=== PATIENT | female | born 1965 | race Caucasian/White ===

== ENCOUNTER 2021-08-23 07:34 | Outpatient (REF) | payer OTHER, SELFPAY ==
[2021-08-23 07:58] LABS: MANUAL DIFF FLAG NO
[2021-08-23 08:26] LABS: Eosinophils Absolute Auto 0.1 X10*3/uL (0.0-0.4); Eosinophils Percent Auto 2.4 % (0-4); Hematocrit 37.3 % (37.0-47.0); Hemoglobin 12.2 g/dl (12.0-16.0); Imm Gran Abs Auto 0.01 X10*3/uL (0.00-0.03); Imm Gran Pct Auto 0.2 % (0.0-0.4); Lymphocytes Absolute Auto 1.5 X10*3/uL (1.2-4.9); Lymphocytes Percent Auto 37.2 % (20-40); Mean Corpuscular HGB Conc 32.7 g/dl (31.0-35.0); Mean Corpuscular Hemoglobin 28.6 pg (27.0-33.0); Mean Corpuscular Volume 87.6 fL (80.0-98.0); Mean Platelet Volume 10.4 fL (9.4-12.3); Monocytes Absolute Auto 0.3 X10*3/uL (0.1-1.2); Neutrophils Absolute Auto 2.1 x10*3/uL (2.0-8.3); Neutrophils Percent Auto 51.2 % (45-73); Platelet Count 238 X10*3/uL (160-400); Red Blood Count 4.26 X10*6/uL (4.20-5.50); Red Cell Distribution Width 12.8 % (11.0-16.0); White Blood Count 4.1 X10*3/uL (4.8-10.8)
[2021-08-23 08:59] LABS: Alanine Aminotransferase 16 U/L (0-31); Albumin Level 4.3 g/dL (3.5-5.0); Alkaline Phosphatase 70 U/L (39-117); Anion Gap 11 (12-20); Aspartate Amino Transferase 19 U/L (5-31); Bilirubin Total 0.6 mg/dL (0.0-1.0); Blood Urea Nitrogen 11 mg/dL (9-16); Carbon Dioxide 28 mmol/L (22-29); Chloride 105 mmol/L (96-108); Cholesterol 221 mg/dL; Estimated Glomerular Filt Rate > 60; Glucose Fasting 94 mg/dL (60-99); HDL Cholesterol 53 mg/dL; LDL Cholesterol Calculated 158 mg/dl; Potassium 4.2 mmol/L (3.3-5.1); Sodium 140 mmol/L (135-145); Total Protein 7.1 g/dL (6.5-8.0); Triglycerides 52 mg/dL
[2021-08-23 09:22] LABS: Thyroid Stimulating Hormone 1.42 uIU/mL (0.32-4.0); Vitamin D 25-OH Total 32.5 ng/mL (>30)
== END 2021-08-23 07:35 | disposition home or self-care (01) ==
LOC: HO.LAB 07:34
PROVIDERS: PCP Internal Medicine; Visit Provider Internal Medicine
DX: Z00.00 Encounter for general adult medical examination without abnormal findings (principal); E78.00 Pure hypercholesterolemia, unspecified; I10 Essential (primary) hypertension
CPT/HCPCS: 36415; 80053; 80061; 82306; 84443; 85025

== ENCOUNTER 2021-12-13 07:06 | Outpatient (REF) | payer OTHER, SELFPAY ==
[2021-12-13 08:11] LABS: Alanine Aminotransferase 28 U/L (0-31); Albumin Level 4.2 g/dL (3.5-5.0); Alkaline Phosphatase 76 U/L (39-117); Anion Gap 13 (12-20); Aspartate Amino Transferase 26 U/L (5-31); Bilirubin Total 0.5 mg/dL (0.0-1.0); Blood Urea Nitrogen 14 mg/dL (9-16); Calcium 9.3 mg/dL (8.4-10.2); Carbon Dioxide 29 mmol/L (22-29); Chloride 105 mmol/L (96-108); Cholesterol 164 mg/dL; Estimated Glomerular Filt Rate > 60; Glucose Fasting 102 mg/dL (60-99); HDL Cholesterol 58 mg/dL; LDL Cholesterol Calculated 96 mg/dl; Potassium 4.4 mmol/L (3.3-5.1); Sodium 143 mmol/L (135-145); Total Protein 7.1 g/dL (6.5-8.0); Triglycerides 51 mg/dL
== END 2021-12-13 07:07 | disposition home or self-care (01) ==
LOC: HO.LAB 07:06
PROVIDERS: PCP Internal Medicine; Visit Provider Internal Medicine
DX: E78.00 Pure hypercholesterolemia, unspecified (principal)
CPT/HCPCS: 36415; 80053; 80061

== ENCOUNTER 2021-12-22 06:24 | Day surgery (SDC) | payer OTHER, SELFPAY ==
--- NOTE | 2021-12-19 07:59 | HO.ANESPROP2 ---
Documented by User: Nina Kirkland NP 12/19/21 08:00 HPI - Anesthesia Eval Consult details Narrative: 56yo F for Colonoscopy ERBE Jet 2 PMFSH Past Medical History Medical History HTN (hypertension) Surgical History Surgical History Hx of colonoscopy Hx of esophagogastroduodenoscopy Hx of hysterectomy Social History Social History Patient Tobacco Use Status: Never used Tobacco Use of substances other than those prescribed or required for medical reasons: No Advance Directives: No Advance Directives Information Provided: Yes Meds Allergies Allergy/AdvReac Type Severity Reaction Status Date / Time latex Allergy Unknown Itching Verified 12/22/21 06:35 Home Medications Medication Instructions Recorded Confirmed Last Taken Type Cantil 3 1,000 mg PO DAILY 12/19/21 12/19/21 Unknown History propranolol 60 mg capsule,24 1 cap PO DAILY 12/19/21 12/19/21 Unknown History hr,extended release Exam Exam Date and Time: December 19, 2021 [id number] Pertinent Lab Results Pertinent Lab Results: Laboratory Tests 08/23/21 12/13/21 07:58 07:17 WBC 4.1 L Hgb 12.2 Hct 37.3 Plt Count 238 Sodium 143 Potassium 4.4 Chloride 105 Carbon Dioxide 29 BUN 14 Creatinine 0.72 Assessment and Plan Assessment Anesthesia Assessment: Chart Reviewed Documented by User: Marsha Cuevas MD 12/22/21 07:24 PMFSH Past Medical History Medical History HTN (hypertension) Surgical History Surgical History Hx of colonoscopy Hx of esophagogastroduodenoscopy Hx of hysterectomy History of Problems with Anesthesia: No Social History Social History Patient Tobacco Use Status: Never used Tobacco Use of substances other than those prescribed or required for medical reasons: No Advance Directives: No Advance Directives Information Provided: Yes Meds Allergies Allergy/AdvReac Type Severity Reaction Status Date / Time latex Allergy Unknown Itching Verified 12/22/21 06:35 Home Medications Medication Instructions Recorded Confirmed Last Taken Type Cantil 3 1,000 mg PO DAILY 12/19/21 12/19/21 Unknown History propranolol 60 mg capsule,24 1 cap PO DAILY 12/19/21 12/19/21 Unknown History hr,extended release Exam Airway Mallampati Class: I TM Dist: >3cm Neck ROM: Full Loose/Missing/Broken Teeth: No Heart: RRR Lungs: CTA Assessment and Plan Assessment Anesthesia Assessment: Anesthesia Plan Discussed Final Anesthetic Review History of Problems with Anesthesia: No NPO: Yes ASA Class: II Final Preanesthetic Review: Meds/Allgs Chart Reviewed, Consent Obtained/Reviewed and Anes Risks/Benef Reviewed Patient Risk: Low Procedure Risk: Low Anesthetic Plan Anesthetic Plan: MAC: Disposition: Standard PACU
[2021-12-22 06:41] VITALS: BP 133/75; PULSE 71; RESP 16; TEMP 36.8; O2SAT 98; BMI 25.0
[2021-12-22] MEDS: Lactated Ringers 1,000 ML 100 ML IVCONT (07:02)
[2021-12-22 08:20] VITALS: BP 114/54; PULSE 80; RESP 20; TEMP 36.8; O2SAT 100
--- NOTE | 2021-12-22 08:22 | PM.OP ---
Brief Operative Note Date of Service: 12/22/21 Pre-op diagnosis: Screening Post-op diagnosis: other (Diverticulosis) Procedure: Colonoscopy to the cecum and TI Surgeon: Gurdeep Wick Anesthesia: MAC Was an Strategic Planning Director used for this Procedure?: No Estimated blood loss (mL): 0 Pathology: none sent Condition: stable Disposition: PACU
[2021-12-22 08:35] VITALS: BP 134/85; PULSE 66; RESP 16; TEMP 37.1; O2SAT 100
--- NOTE | 2021-12-22 08:49 | OP_ITS ---
SURGEON: Gurdeep Wick MD INDICATIONS: The patient presents for evaluation of personal history of tubular adenoma of the colon and colorectal cancer screening. Full consent has been obtained from her for this, including risks of bleeding and perforation. PREOPERATIVE DIAGNOSIS: POSTOPERATIVE DIAGNOSIS: PROCEDURE PERFORMED: Colonoscopy to cecum and terminal ileum. ESTIMATED BLOOD LOSS: COMPLICATIONS: ANESTHESIA: Monitored anesthesia care. ASSISTANTS: SPECIMENS: PREOPERATIVE DIAGNOSES: Colorectal cancer screening and personal history of tubular adenoma of the colon. POSTOPERATIVE DIAGNOSES: Colorectal cancer screening and personal history of tubular adenoma of the colon, sigmoid diverticulosis, and internal hemorrhoids. DESCRIPTION OF PROCEDURE: The patient was placed in the left lateral decubitus position. The digital rectal exam revealed no abnormalities. The Olympus video pediatric colonoscope was entered into the rectum and advanced easily to the cecum. Once in the cecum, I did identify normal-appearing cecal pouch with appendiceal orifice and a normal-appearing ileocecal valve. The terminal ileum was cannulated and appeared normal. The scope was withdrawn back in the colon. The entire cecum and ileocecal valve appeared normal. The scope was slowly withdrawn assessing all mucosal surfaces carefully. Preparation was excellent. I did not visualize any sign of polyps, colitis, nor angiodysplasia. There was a mild amount of sigmoid diverticulosis. In the rectum, scope was retroflexed visualizing internal hemorrhoids, but no other pathology. The rectal mucosa appeared normal. Scope was straightened and withdrawn from the patient. She tolerated the procedure well and was returned to the recovery area in stable condition. IMPRESSION: 1. Diverticulosis. 2. Internal hemorrhoids. PLAN: Given her previous history, I would recommend a followup coloscopy in 5 years for further screening. She will otherwise see me on a p.r.n. basis. MD YADIRA Whitman/HAL / [phone]
== END 2021-12-22 09:11 | disposition home or self-care (01) ==
PROVIDERS: PCP Internal Medicine; Visit Provider Internal Medicine
PROC: (CPT 45378; principal; 2021-12-22 07:30)
DX: Z12.11 Encounter for screening for malignant neoplasm of colon (principal); Z86.010 Personal history of colon polyps; K57.30 Diverticulosis of large intestine without perforation or abscess without bleeding; K64.8 Other hemorrhoids; I10 Essential (primary) hypertension; Z79.899 Other long term (current) drug therapy; Z91.040 Latex allergy status
CPT/HCPCS: 45378; Q9968

== ENCOUNTER 2022-10-24 07:20 | Outpatient (REF) | payer OTHER, SELFPAY ==
[2022-10-24 08:00] LABS: MANUAL DIFF FLAG NO
[2022-10-24 08:44] LABS: Basophils Percent Auto 0.8 % (0-2); Eosinophils Absolute Auto 0.1 X10*3/uL (0.0-0.4); Eosinophils Percent Auto 1.8 % (0-4); Hematocrit 40.8 % (37.0-47.0); Imm Gran Abs Auto 0.01 X10*3/uL (0.00-0.03); Imm Gran Pct Auto 0.2 % (0.0-0.4); Lymphocytes Absolute Auto 1.6 X10*3/uL (1.2-4.9); Lymphocytes Percent Auto 30.5 % (20-40); Mean Corpuscular HGB Conc 31.9 g/dl (31.0-35.0); Mean Corpuscular Hemoglobin 28.4 pg (27.0-33.0); Mean Corpuscular Volume 89.1 fL (80.0-98.0); Mean Platelet Volume 10.5 fL (9.4-12.3); Monocytes Absolute Auto 0.4 X10*3/uL (0.1-1.2); Monocytes Percent Auto 8.4 % (2-11); Neutrophils Percent Auto 58.3 % (45-73); Platelet Count 206 X10*3/uL (160-400); Red Blood Count 4.58 X10*6/uL (4.20-5.50); White Blood Count 5.1 X10*3/uL (4.8-10.8)
[2022-10-24 09:25] LABS: Alanine Aminotransferase 21 U/L (0-31); Albumin Level 4.2 g/dL (3.5-5.0); Alkaline Phosphatase 74 U/L (39-117); Anion Gap 10 (12-20); Aspartate Amino Transferase 23 U/L (5-31); Bilirubin Total 0.6 mg/dL (0.0-1.0); Blood Urea Nitrogen 13 mg/dL (9-16); Calcium 9.7 mg/dL (8.4-10.2); Carbon Dioxide 30 mmol/L (22-29); Chloride 106 mmol/L (96-108); Cholesterol 154 mg/dL (<200); Estimated Glomerular Filt Rate > 60; Glucose Random 90 mg/dL (60-115); HDL Cholesterol 62 mg/dL (>40); LDL Cholesterol Calculated 85 mg/dL (<100); Potassium 4.3 mmol/L (3.3-5.1); Sodium 142 mmol/L (135-145); Total Protein 7.4 g/dL (6.5-8.0); Triglycerides 39 mg/dL (<150)
== END 2022-10-24 07:21 | disposition home or self-care (01) ==
LOC: HO.LAB 07:20
PROVIDERS: PCP Internal Medicine; Visit Provider Internal Medicine
DX: Z00.00 Encounter for general adult medical examination without abnormal findings (principal); E78.00 Pure hypercholesterolemia, unspecified; I10 Essential (primary) hypertension
CPT/HCPCS: 36415; 80053; 80061; 85025

== ENCOUNTER 2024-03-29 10:07 | Outpatient (AMB) | payer OTHER, SELFPAY ==
--- NOTE | 2024-03-29 10:08 | A.OFFPC_ITS ---
Vital Signs 03/29/24 10:18 Height 5 ft 3.75 in Weight 150 lb BMI 25.9 BP 116/72 Blood Pressure Location Rt brachial Pulse 69 Pulse Source Pulse Oximeter Temp 97.1 F Pulse Oximetry (%) 100 Intake Visit Reasons: physical Intake Note: burning in right knee only at night going for almost two weeks, Allergies latex Allergy (Unknown, Verified 03/29/24 10:44) Itching Medication List - Last Reconciled 03/29/24 by Jolanta Mcintyre PA-C atorvastatin 10 mg PO DAILY coenzyme Q10 100 mg PO DAILY [[place] 3 1,000 mg PO DAILY] propranolol ER 1 cap PO DAILY PFSH Medical History (Updated 03/29/24 @ 10:53 by Jolanta Mcintyre PA-C) Overweight (BMI 25.0-29.9) History of mammogram (~08/25/22) H/O impacted cerumen History of varicella Uterine fibroid Calcifying tendinitis of left shoulder Varicella Right knee pain Blurry vision, bilateral Hemorrhoids Mild hypercholesterolemia HTN (hypertension) Surgical History Hx of hysterectomy Hx of colonoscopy (~12/22/21) Hx of esophagogastroduodenoscopy Social History Patient Tobacco Use Status: Never used Tobacco Physical exam (Primary Care) Vital Signs: Last Vital Signs Temp 97.1 F 03/29/24 10:18 Pulse 69 03/29/24 10:18 BP 116/72 03/29/24 10:18 Pulse Ox 100 03/29/24 10:18 Care Plan Goal for BP management: 130/80 at goal BMI result Body Mass Index 25.9 BMI Assessment/Plan discussion: High BMI High, discussed plan: lifestyle, weight reduction, dietary, physical activity and alcohol moderation Tobacco/Smoking Status: Tobacco use Status Patient Tobacco Use Status Never used Tobacco 03/29/24 10:09 Coding Level of Care Code New Pt Prev Care 40-64y(70006) Diagnoses Mild hypercholesterolemia E78.00 HTN (hypertension) I10 Hemorrhoids K64.9 Blurry vision, bilateral H53.8 Right knee pain M25.561 Calcifying tendinitis of left shoulder M75.32 Uterine fibroid D25.9 Annual physical exam Z00.00 Overweight (BMI 25.0-29.9) E66.3 Assessment & Plan Assessment & Plan (1) Mild hypercholesterolemia: Code(s): E78.00 - Pure hypercholesterolemia, unspecified Category: Medical Plan: Patient to continue atorvastatin 10 mg daily. Condition is chronic and stable continue to monitor. (2) HTN (hypertension): Code(s): I10 - Essential (primary) hypertension Category: Medical Plan: Patient to continue propranolol 60 mg daily. Blood pressure at goal under 130 over 80 today. Condition is chronic and stable continue to monitor. (3) Hemorrhoids: Code(s): K64.9 - Unspecified hemorrhoids Category: Medical Plan: Condition is chronic and stable continue to monitor. (4) Blurry vision, bilateral: Code(s): H53.8 - Other visual disturbances Category: Medical Plan: Condition is chronic and stable continue to monitor. (5) Right knee pain: Code(s): M25.561 - Pain in right knee Category: Medical Plan: Atraumatic right knee pain. Patient has full range of motion. No obvious deformities or joint effusions or obvious ligamentous or tendon injury. Will order outpatient x-ray. Condition is stable will continue to monitor. (6) Calcifying tendinitis of left shoulder: Code(s): M75.32 - Calcific tendinitis of left shoulder Category: Medical Plan: Condition is chronic and stable continue to monitor. (7) Uterine fibroid: Code(s): D25.9 - Leiomyoma of uterus, unspecified Category: Medical Plan: Condition is chronic and stable continue to monitor. (8) Annual physical exam: Code(s): Z00.00 - Encounter for general adult medical examination without abnormal findings Category: Medical (9) Overweight (BMI 25.0-29.9): Code(s): E66.3 - Overweight Category: Medical Plan: Condition is chronic and stable continue to monitor. Plan Plan - Facilitate right knee imaging via x-ray at the available center as an outpatient service. - Advise continuation of current medications: propranolol, atorvastatin, colcutan, and omega-3 supplements. - Schedule a DEXA scan to re-evaluate bone density. - Arrange a follow-up mammogram. - Schedule fasting labs including CBC, CMP, lipid panel, and others for health monitoring. Orders: Orders XR DEXA appendicular skeleton Today M81.0 - Age-related osteoporosis without current pathological fracture Comprehensive [place]. Panel Fast Today Z00.00 - Encounter for general adult medical examination without abnormal findings C Reactive Protein Today Z00.00 - Encounter for general adult medical examination without abnormal findings Magnesium Today Z00.00 - Encounter for general adult medical examination without abnormal findings Vitamin B12 and Folate Today Z00.00 - Encounter for general adult medical exam ination without abnormal findings XR knee RT 4V Today M25.561 - Pain in right knee MM screening mammo BI Today Z12.31 - Encounter for screening mammogram for malignant neoplasm of breast Complete Blood Count Auto Diff Today Z00.00 - Encounter for general adult medical examination without abnormal findings Hemoglobin A1c Today Z00.00 - Encounter for general adult medical examination without abnormal findings Lipid Panel Today Z00.00 - Encounter for general adult medical examination without abnormal findings Liver Panel Today Z00.00 - Encounter for general adult medical examination without abnormal findings Vitamin B1 Today Z00.00 - Encounter for general adult medical examination without abnormal findings Vitamin D 25-OH Total Today Z00.00 - Encounter for general adult medical examination without abnormal findings TSH reflex Free T4 Today Z00.00 - Encounter for general adult medical examination without abnormal findings Patient Instructions: Patient Instructions - Attend x-ray appointment and report results back for further discussion. - Continue current medication regimen as prescribed. - Schedule and attend routine mammography and DEXA scan appointments. - Use peroxide capsules for earwax maintenance to prevent blockage. - Follow up with fasting labs as discussed and return with results for review. - Contact the medical office if experiencing new or worsening symptoms. Scribe Plan - Not visible on output: History of Present Illness The patient is a 58-year-old female presenting for her annual physical examination. In addition she would like to discuss her right knee pain. The right knee pain occurs at night, particularly when sleeping, and has no associated recent injuries, torsion events, or falls. As it is intermittent and mild, the patient has not needed or used any medication. The patient has a history of left shoulder impingement syndrome and calcific tendonitis, which have been managed and are stable. She also reports a history of uterine fibroids followed by a partial hysterectomy. She has received the shingles vaccine after a past chickenpox infection. The patient's chronic conditions include essential hypertension and hyperlipidemia, for which she is currently taking propranolol, atorvastatin, colcutan, and omega-3 supplements. Blood cholesterol levels are noted to be within a favorable range from her last recorded blood work in October 2022. Social History - Receives regular mammograms and colonoscopies. - Self-manages earwax accumulation with urgent care consultations. Review of Systems - Ears: Reports ear clogging twice a year, requiring cleaning. - Musculoskeletal: Denies any new injuries or falls related to right knee pain. - General: Denies additional current complaints beyond those discussed for right knee and standard health review. Physical Exam Appearance: Alert. Oriented X3. No acute distress. Head: Normal external exam. Normocephalic. Atraumatic. Eyes: Pupils are equal, round, and reactive to light. Extraocular movements intact. Conjunctiva and sclera normal. Eyelids normal. Ears: External auditory canal normal. Tympanic membranes normal. Patient reports ears clog up at least twice a year and require cleaning. Throat: Pharynx normal. Uvula midline. Moist mucous membranes. Neck: Normal inspection. Neck supple. Full range of motion. No adenopathy. Thyroid Normal. No meningeal signs. No neck mass noted. Cardiovascular: Normal heart rate and rhythm. Heart sound normal. No murmurs noted. Pulses normal throughout. Blood pressure is 116/70. Respiratory: No respiratory distress. Painless inspiration. Breath sounds normal. No wheezes/rales/rhonchi noted. Chest nontender. No accessory muscle usage noted or decreased air movement noted. Abdomen: Soft and nontender. Bowel sounds normal in all 4 quadrants. No distention noted. No organomegaly noted. No visible injury noted. Back: No costovertebral angle tenderness. Full range of motion noted. Skin: Skin warm and dry. Normal skin color. Normal skin turgor. No rashes/lesions/lacerations noted. Extremities: No lower extremity edema. Extremities exhibit normal range of motion. Extremities nontender. Patient reports right knee pain. Neuro: Oriented X 3. No motor deficit. No sensory deficit. Reflexes normal. Results - Labs: Previous blood work from October 2022 indicates normal cholesterol levels. - Tests: Last colonoscopy was done on December 22, 2021. Last mammogram in 2022 was normal. DEXA scan from October 29, 2017, was normal. Plan - Facilitate right knee imaging via x-ray at the available center as an outpatient service. - Advise continuation of current medications: propranolol, atorvastatin, colcutan, and omega-3 supplements. - Schedule a DEXA scan to re-evaluate bone density. - Arrange a follow-up mammogram. - Schedule fasting labs including CBC, CMP, lipid panel, and others for health monitoring. Patient was informed and verbally consented to the use of an ambient scribe for clinic note documentation during this visit. Discussion Notes I discussed with the patient the plan to obtain an x-ray of her right knee to evaluate any possible internal issues given her symptoms and history. I explained where this can be performed and confirmed the facility's availability during weekends. We reviewed the importance of continued medication management for essential hypertension and hyperlipidemia. I advised annual maintenance imaging studies, including a mammogram and a repeat DEXA scan. We also conversed about ongoing health monitoring through regular lab work. The patient recognizes and consents to the proposed medical approach and understands the follow-up process. Patient Instructions - Attend x-ray appointment and report results back for further discussion. - Continue current medication regimen as prescribed. - Schedule and attend routine mammography and DEXA scan appointments. - Use peroxide capsules for earwax maintenance to prevent blockage. - Follow up with fasting labs as discussed and return with results for review. - Contact the medical office if experiencing new or worsening symptoms.
[2024-03-29 10:18] VITALS: BP 116/72; PULSE 69; TEMP 36.2; O2SAT 100; BMI 25.9
--- OUTSIDE RECORDS SUMMARY | 2024-03-29 10:35 | XMS_ITS ---
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
--- OUTSIDE RECORDS SUMMARY | 2024-03-29 10:35 | XMS_ITS | Data Portability ---
Author Organization [place] [facility] [address] Address [address] [place] [address] Assessment No assessment recorded. Plan of Treatment Reminders Order Date Submit Date Provider Last Modified By Organization Details Last Modified Time Details Appointments None record ed. Lab None record ed. Referral None record ed. Procedures None record ed. Surgeries None record ed. Imaging None record ed. Medication Orders neomyc in-nichelle ymyxin -hydro ramila 3.5 mg-10, 000 unit/m L-1 % ear drops, susp 023 04/06/19 23 [id number], [address] [place], [address], 3 19:24:24 Patient TargetsNo targets recorded. Patient Instructions Encounter Date Encounter Id Patient Instructions Last Modified By Organization Details Last Modified Time 04/06/2022 [id number] Water in the ear , from swimming or bathing, makes the ear canal prone to infection. Hot and humid weather also predisposes to infection. Symptoms of otitis externa include: ear pain, fullness or itching in the ear, ear drainage, and temporary loss of hearing. These symptoms are similar to those caused by otitis media (middle ear infection). To differentiate between external ear infection and middle ear infection, the provider looks in the ear with an instrument called an otoscope. It is important to distinguish between the two infections, as they are treated differently: External otitis is treated with drops in the ear canal, while middle ear infection is sometimes treated with an antibiotic by mouth. MEASURES YOU SHOULD TAKE TO HELP TREAT EXTERNAL EAR INFECTION: 1. Use the ear drops regularly, as directed on the prescription. 2. The rock to treatment is getting the drops down into the canal and keeping the medicine there. To accomplish this: Lie on your side, with the unaffected ear down. Put three to four drops in the infected ear canal, then gently pull the outer ear back and forth several times, working the medicine deeper into the ear canal. Remain still, dhmu-ksw-dnqi-down for about 15 minutes. 3. Keep the ear as dry as possible. Swimming should be postponed until the infection has cleared. Try to avoid getting water in the ear when bathing. If water does get in the ear, the canal can be gently dried with a hair blow dryer. Use the low heat setting, and keep the blow dryer about six inches from the ear. 4. Noqs-gkd-klzpzea pain medications can relieve discomfort associated with external otitis. Acetaminophen (Tylenol), ibuprofen, or naproxen can be taken, depending on individual preference. 5. Return to the [facility] in about one week. The provider can check to make sure the infection has cleared, continue the medicine if needed, okay a return to swimming, etc. 6. To prevent repeated episodes of otitis externa, try to keep the ear canal dry. Gentle swabbing with Q-tips (never deep into the canal), along with a hair blow dryer (low heat), can be used to dry the ear canal if it gets wet. 7. Should you develop severe pain, fever, severe headache, or stiff neck, see your personal/referral doctor or go to the closest emergency department promptly. Otitis externa does not normally cause these symptoms; another problem, requiring different treatment, could be present [email or web address] Not available 04/06/2022 19:22:33 Reason for Referral None Reported. Problems Name Problem SNOMED Code Status Onset Date Resolution Date Notes Provider Name and Address Organization Details Recorded Time Hypertensive disorder 42640470 Active 2022 Kalpana reed, PA - [facility] 3 18:50:57 Hyperlipidemia 00002623 Active 2022 Kalpana reed, PA - [facility] 3 18:51:03 Problem Notes None recorded. Procedures Surgical History Date Name Laterality Status Provider Name and Address Organization Details Recorded Time 3 Cerumen Removal by Irrigation completed Kalpana Valadez PA - [facility] 04/06/2022 19:10:49 Imaging Results None recorded. Procedure Notes None recorded. Medical Equipment None Reported. Allergies No known drug allergies Medications Name Sig Start Date Stop Date Status Note LastModified by Organization Details LastModified Time atorvastatin 10 mg tablet TAKE 1 TABLET BY MOUTH EVERY DAY FOR 90 DAYS active Not Available Not Available No t Available propranolol ER 60 mg capsule,24 hr,extended release TAKE 1 CAPSULE BY MOUTH EVERY DAY FOR 90 DAYS active Not Available Not Available No t Available neomycin-polym yxin-hydrocort 3.5 mg-10,000 unit/mL-1 % ear drops,susp INSTILL 4 DROPS INTO AFFECTED EAR(S) BY OTIC ROUTE 3 TIMES PER DAY 2022 active Not Available Not Available Not Avai lable Vitals Date Recorded Body height Body mass index (BMI) Body weight Oxygen saturation Oxygen saturation in Arterial blood by Pulse oximetry Pain severity - 0-10 verbal numeric rating [Score] - Reported Heart rate Respiratory rate Body temperature Systolic blood pressure Diastolic blood pressure Provider Name and Address Organization Details Last Updated DateTime 165.1 cm 25 kg/m2 59744.8 6 g 99 % 99 % 0 74 /min 20 /min 97.9 [degF] 137 mm[Hg] 84 mm[Hg] Kalpana Valadez [employer] 18:56:04 Social History Question Answer Notes LastModified by Organizat ion Details LastModified Time Tobacco Smoking Status Never Smoker Kalpana reed PA - [facility] 04/06/2022 18:51:13 What Is Your Level Of Alcohol Consumption? Occasional Information not available 04/06/2022 Have You Had Direct Contact, Or Contact During Intimacy, With Monkeypox Rash, Scabs, Or Body Fluids From A Person With Monkeypox? No Information not available 04/06/2022 Do You Use Any Illicit Or Recreational Drugs? No Information not available 04/06/2022 Have You Recently Traveled Abroad? No Information not available 04/06/2022 Do You Or Have You Ever Used Any Other Forms Of Tobacco Or Nicotine? No Information not available 04/06/2022 Sex: Unknown Functional Status None recorded. Mental Status None recorded. Family History Relationship Description Onset Age of this Age Resolved Age Notes LastModified by Organization Details LastModified Time Father No current problems or disability Not available 04/06 18:51:05 Mother No current problems or disability Not available 04/06 18:51:05 Medical History No medical history recorded. Gynecological HistoryNo gynecological history recorded. Obstetrics History GPAL:G 0 P 0 0 0 0 Immunizations Vaccine Type Date Status Note Provider Nam e and Address Organization Details Recorded Time Influenza, split virus, quadrivalent, preservative 0 completed Kalpana [place] null, PA - [facility] 04/06/2022 18:50:33 Influenza, split virus, quadrivalent, preservative 8 completed Kalpana Rory null, PA - [facility] 04/06/2022 18:50:33 zoster recombinant 2 completed Kalpana [place] null, PA - [facility] 04/06/2022 18:50:33 zoster recombinant 2 completed Kalpana [place] null, PA - [facility] 04/06/2022 18:50:33 COVID-19, mRNA, LNP-S, PF, 30 mcg/0.3 mL dose 1 completed Kalpana [place] null, PA - [facility] 04/06/2022 18:50:33 COVID-19, mRNA, LNP-S, PF, 30 mcg/0.3 mL dose 1 completed Kalpana Rory null, PA - [facility] 04/06/2022 18:50:33 COVID-19, mRNA, LNP-S, PF, 30 mcg/0.3 mL dose 1 completed Kalpana [place] null, PA - [facility] 04/06/2022 18:50:33 Past Encounters Encounter ID Performer Location Encounter Start Date Encounter Closed Date Diagnosis/Indication Diagnosis SNOMED-CT Code Diagnosis ICD10 Code Diagnosis Note [id number] [address] [address] [address] 02/25/2021 08:10:25 02/25/2021 10:05:26 [id number] [address] [place] [address] 12/10/2019 18:02:11 12/10/2019 19:01:53 [id number] [address] [place] [address] 06/01/2020 16:47:49 06/01/2020 17:43:59 [id number] [address] [place] [address] 11/27/2019 17:47:43 11/27/2019 18:57:13 [id number] [address] [place] [address] 07/04/2016 18:40:43 07/04/2016 19:14:58 [id number] Mahesh Fleming NP [address] [place] [address] 04/06/2022 17:32:19 04/06/2022 19:25:43 Otitis externa of bilateral ears 4529668071 369437 H60.93 Health Concerns Section Related Observation LastModified by Organization Detai ls LastModified Time None Recorded Concern Status LastModified by Organization Details LastModified Time None Recorded Advance Directives Directive None Recorded Payers Encounter Date Sequence Insurance Name Policy Number Policy Hernandez Covered Member ID Hernandez Member ID Guarantor Name 11/27/2019 1 [employer]AN (PPO) [id number] Jeanna A Faye [id number] Jeanna A Faye 12/10/2019 1 [employer] PLAN (PPO) [id number] Jeanna A Faye [id number] Jeanna A Faye 06/01/2020 1 [employer] PLAN (PPO) [id number] Jeanna A Faye [id number] Jeanna A Faye 02/25/2021 1 [employer] PLAN (PPO) [id number] Jeanna A Faye [id number] Jeanna A Faye 04/06/2022 1 [employer] IN[employer] PLAN (PPO) [id number] Jeanna A Faye [id number] Jeanna A Faye Notes Date Note Type Note Provider Name and Address Organization Details Recorded Time 3 text/html Ear problem UCReported bypatient.source of patient informationInformation obtained from patient; Patient arrived at Urgent Care ambulatory; learning styles: auditory Location:bilateral Quality:clogged;decreased hearing Severity:moderate Duration:4 weeks Context:no sick contacts; no recent swimming/water in ear; no recent air travel Modifying Factors:does not hurt to lie on, or pull on ear; does not hurt to chew; often has wax accumulation Mahesh Fleming NP [address] [place], [address], PA - [facility] 04/06/2022 19:24:58 OBGyn Episode No OBEpisode recorded.
--- OUTSIDE RECORDS SUMMARY | 2024-03-29 10:35 | XMS_ITS | Patient Health Record ---
Author Organization Gurdeep Astorga DO, FAC Address [address] [place], [place] [id number] Care Team Providers Care Marketing Analytics Analyst Name Role Phone Gurdeep Astorga Primary Care Provider ALLERGIES No Known Allergies REASON FOR REFERRAL No Information MEDICATIONS Medication SIG (Take, Route, Frequency, Duration) Notes Start Date End Date Status Propranolol HCl ER 60 MG 1 capsule Orall y Once a day Active Atorvastatin Calcium 10 MG 1 tablet Oral ly Once a day for 90 days Active Paxlovid (300/100) 20 x 150 MG & 10 x 100MG 3 tablets Orally Twice a day for 5 days 01/29/2023 Active [place] 3 1000 MG 1 capsule Orally Onc e a day Active Co Q 10 100 MG 1 capsule Orally Onc e a day Active IMMUNIZATIONS Vaccine Route Administration Date Status Comme nts Td (adult) Unknown 09/30/2004 Administered Influenza IM Intramuscular 11/11/2011 Administered Influenza IM Intramuscular 05/04/2013 Administered Influenza Quad IM Intramuscular 12/14/2014 Administered Influenza Quad IM Intramuscular 02/04/2018 Administered Influenza Quad IM Intramuscular 12/19/2019 Administered COVID-19 Pfizer BioNTech Unknown 01/10/2021 Administere d Shingrix Unknown 08/01/2021 Administered COVID-19 Pfizer BioNTech Unknown 05/16/2020 Administere d COVID-19 Pfizer BioNTech Unknown 04/24/2020 Administere d Shingrix Unknown 10/11/2021 Administered SOCIAL HISTORY Tobacco Use: Social History Observation Description Date Details (start date - stop date) Never Smoker NA - NA Sex Assigned At : Social History Observation Description Sex Assigned At Unknown Tobacco Use/Smoking Question Answer Notes Patient is a nonsmoker Additional Findings: Tobacco Non-User Cu rrent non-smoker, currently using no form of tobacco Alcohol Screen Question Answer Notes Did you have a drink contain ing alcohol in the past year? Yes How often did you have a dri nk containing alcohol in the past year? Monthly or less (1 point) How many drinks did you have on a typical day when you were drinking in the past year? 1 or 2 drinks (0 point) How often did you have 6 or more drinks on one occasion in the past year? Never (0 point) Points 1 Interpretation Negative PROBLEMS Problem Type ICD Code Onset Dates Problem Status W/U Status Risk SNOMED Code Notes Problem Essential hypertensi on (I10) Active confirmed 86621932 Problem Bilateral impacted cerumen (H61.23) Active confirmed 77642511 Problem Hypercholesterolemia (E78.00) Active confirmed 66389473 Problem Blurred vision, bilateral (H53.8) Active confirmed 979181620 Encounters Encounter Location Date Provider Diagnosis Gurdeep Astorga DO, [facility] [address] [place], [place] [id number] 09/29/2023 Gurdeep Astorga DO, [facility] [address], [place] [id number] 02/01/2024 Gurdeep Astorga DO, [facility] [address], [place] [id number] 03/29/2024 Gurdeep Astorga PLAN OF TREATMENT No Information Insurance Providers Payer Name Payer Address Payer Phone Subscriber Number Group Number Insured Name Patient Relationship to Insured Coverage Start Date Coverage End Date [facility] [address] [place] [phone] [id number] Faye, Jeanna Self - patient is the insured MEDICAL (GENERAL) HISTORY Medical History History ICD Code uterine fibroids hemorrhoids dermatitis, contact, to surgical gloves and masks varicella tendonitis, calcific, left shoulder cerumen impaction Hypercholesterolemia E78.00 Essential hypertension I10 Blurred vision, bilateral H53.8 Surgical History Surgery Date(Month/Year) hysterectomy, abdominal 11/2011
--- OUTSIDE RECORDS SUMMARY | 2024-03-29 10:35 | XMS_ITS ---
Author Organization Gurdeep Astorga DO, FACBrigido Address [address] [place], [place] [phone] Care Team Providers Care Email Campaign Manager Name Role Phone Gurdeep Astorga Primary Care Provider Encounters Encounter Location Date Provider Diagnosis Gurdeep Astorga DO, FACP [address] [place] [id number] 03/29/2024 Gurdeep Astorga PLAN OF TREATMENT No Information
--- OUTSIDE RECORDS SUMMARY | 2024-03-29 10:35 | XMS_ITS | Patient Health Record ---
Author Organization [facility] Address [address] [place] [address] Care Team Providers Care Corporate Quality Assurance Manager Name Role Phone Rizwan (RETIRED) Delilah NEVAREZ Primary Care Provid er Unavailable Delilah Wick Unavailable [phone] ALLERGIES No Known Allergies REASON FOR REFERRAL No Information MEDICATIONS Medication SIG (Take, Route, Frequency, Duration) Notes Start Date End Date Status [place] 3 1000 MG 1 capsule Orally Onc e a day for 30 day(s) Active Hair/Skin/Nails Vitamin Acti ve Propranolol HCl ER 60 MG Oral for 90 Active IMMUNIZATIONS Vaccine Route Administration Date Status Comme nts Influenza Unknown 09/10/2021 Refused SOCIAL HISTORY Sex Assigned At : Social History Observation Description Sex Assigned At Unknown PROBLEMS Problem Type ICD Code Onset Dates Problem Status W/U Status Risk SNOMED Code Notes Problem Encounter for screening for malignant neoplasm of colon (Z12.11) Active confirmed 674762367 Problem Encounter for screening for malignant neoplasm of rectum (Z12.12) Active confirmed Screening for malignant neoplasm of rectum (005469167) Problem Preprocedural examination (Z01.818) Active confirmed 27027913 Problem History of adenomatous polyp of colon (Z86.010) Active confirmed History o f adenomatous polyp of colon (267656293) Problem Personal history of colonic polyps (Z86.010) Active confirmed History of polyp of colon (situation) (499727853) Problem Colon, diverticulosis (K57.30) Active confirmed Diverticular disease of colon (609555075) PLAN OF TREATMENT Pending Test Test Name Order Date GI BIOPSY 06/17/2015 Future Test Test Name Order Date COLONOSCOPY 03/27/2015 COLONOSCOPY 09/10/2021 Insurance Providers Payer Name Payer Address Payer Phone Subscriber Number Group Number Insured Name Patient Relationship to Insured Coverage Start Date Coverage End Date [facility] [employer] [address] [place] [address] [id number] CHIOMA MALONE Self - patient is the insured MEDICAL (GENERAL) HISTORY Medical History History ICD Code EGD with removal of foreign body 08-24-19 09--chicken bone Denies SC,DM,CVA,Lung disease,renal dise ase Colonoscopy 06/2015 with a small tubular adenoma removed HTN Surgical History Surgery Date(Month/Year) Hysterectomy
--- OUTSIDE RECORDS SUMMARY | 2024-03-29 10:36 | XMS_ITS ---
Author Organization Gurdeep Astorga DO, FACP Address [address] [place], [place] [phone] Care Team Providers Care Fishing Boat Mate Name Role Phone Gurdeep Astorga Primary Care Provider REASON FOR VISIT physical Encounters Encounter Location Date Provider Diagnosis Gurdeep Astorga DO, FACP [address] [place], [place] [phone] 02/01/2024 Gurdeep Astorga PLAN OF TREATMENT No Information
== END 2024-03-29 10:45 | disposition home or self-care (01) ==
LOC: HO.HMCSH 10:07
PROVIDERS: PCP Internal Medicine; Visit Provider Physician Assistant Medical
DX: E78.00 Pure hypercholesterolemia, unspecified (principal); I10 Essential (primary) hypertension; K64.9 Unspecified hemorrhoids; H53.8 Other visual disturbances; M25.561 Pain in right knee; M75.32 Calcific tendinitis of left shoulder; D25.9 Leiomyoma of uterus, unspecified; Z00.00 Encounter for general adult medical examination without abnormal findings; E66.3 Overweight

== ENCOUNTER 2024-04-15 07:19 | Outpatient (REF) | payer OTHER, SELFPAY ==
--- NOTE | ~2024-04-15 | XR_ITS ---
EXAMINATION: XR KNEE 4 OR MORE VIEWS RIGHT HISTORY: M25.561 - Pain in right knee COMPARISON: There are no prior studies available for comparison. FINDINGS: Four views of the right knee are submitted. A small sclerotic focus in the medial tibial plateau may represent enchondroma or bone infarct. There is a small exostosis off the medial tibial metaphysis. There is no fracture or dislocation. The joint spaces are preserved. The soft tissues are unremarkable. There is no joint effusion. XR/XR knee RT 4V IMPRESSION: Small enchondroma versus bone infarct in the medial tibial plateau. Small exostosis off the medial tibial metaphysis. Electronically signed by: Gurdeep Andrea MD 04/18/2024 06:59 AM EDT
[2024-04-15 07:58] LABS: MANUAL DIFF FLAG NO
[2024-04-15 08:30] LABS: Basophils Percent Auto 0.9 % (0-2); Eosinophils Absolute Auto 0.1 X10*3/uL (0.0-0.4); Eosinophils Percent Auto 2.4 % (0-4); Hematocrit 37.8 % (37.0-47.0); Hemoglobin 12.2 g/dl (12.0-16.0); Imm Gran Abs Auto 0.01 X10*3/uL (0.00-0.03); Imm Gran Pct Auto 0.2 % (0.0-0.4); Lymphocytes Absolute Auto 1.4 X10*3/uL (1.2-4.9); Lymphocytes Percent Auto 33.3 % (20-40); Mean Corpuscular HGB Conc 32.3 g/dl (31.0-35.0); Mean Corpuscular Hemoglobin 28.6 pg (27.0-33.0); Mean Corpuscular Volume 88.7 fL (80.0-98.0); Mean Platelet Volume 10.1 fL (9.4-12.3); Monocytes Absolute Auto 0.3 X10*3/uL (0.1-1.2); Monocytes Percent Auto 7.1 % (2-11); Neutrophils Absolute Auto 2.4 x10*3/uL (2.0-8.3); Neutrophils Percent Auto 56.1 % (45-73); Platelet Count 203 X10*3/uL (160-400); Red Blood Count 4.26 X10*6/uL (4.20-5.50); Red Cell Distribution Width 12.8 % (11.0-16.0); White Blood Count 4.2 X10*3/uL (4.8-10.8)
[2024-04-15 08:41] LABS: Estimated Average Glucose 108 mg/dL; Hemoglobin A1c % 5.4 % (<6.0); Total Hemoglobin (HGBA1C) 3252.9524 umol/L
[2024-04-15 09:15] LABS: Alanine Aminotransferase 32 U/L (0-31); Albumin Level 4.1 g/dL (3.5-5.0); Alkaline Phosphatase 77 U/L (39-117); Anion Gap 12 (12-20); Aspartate Amino Transferase 29 U/L (5-31); Bilirubin Direct 0.2 mg/dL (0.0-0.5); Bilirubin Total 0.4 mg/dL (0.0-1.0); Blood Urea Nitrogen 15 mg/dL (9-16); C Reactive Protein < 0.04 mg/dL (< or = 0.50); Calcium 9.1 mg/dL (8.4-10.2); Carbon Dioxide 28 mmol/L (22-29); Chloride 107 mmol/L (96-108); Cholesterol 152 mg/dL (<200); Estimated Glomerular Filt Rate > 60; Glucose Fasting 90 mg/dL (60-99); HDL Cholesterol 58 mg/dL (>40); LDL Cholesterol Calculated 87 mg/dL (<100); Magnesium 2.1 mg/dL (1.6-2.6); Potassium 4.5 mmol/L (3.3-5.1); Sodium 142 mmol/L (135-145); Total Protein 7.4 g/dL (6.5-8.0); Triglycerides 36 mg/dL (<150)
[2024-04-15 09:25] LABS: TSH reflex Free T4 1.57 uIU/mL (0.32-4.0); Vitamin D 25-OH Total 36.2 ng/mL (>30)
[2024-04-15 09:37] LABS: Folate 15.5 ng/mL (> or = 4.0); Vitamin B12 768 pg/mL (200-900)
[2024-04-23 08:49] LABS: Vitamin B1 23 nmol/L (8-30)
== END 2024-04-15 07:20 | disposition home or self-care (01) ==
LOC: HO.XRAY 07:19
PROVIDERS: PCP Internal Medicine; Visit Provider Physician Assistant Medical
DX: Z00.00 Encounter for general adult medical examination without abnormal findings (principal); M25.561 Pain in right knee; Z13.1 Encounter for screening for diabetes mellitus; Z13.6 Encounter for screening for cardiovascular disorders
CPT/HCPCS: 36415; 73564; 80053; 80061; 80076; 82248; 82306; 82607; 82746; 83036; 83735; 84425; 84443; 85025; 86140

== ENCOUNTER → 2024-04-15 08:06 | Outpatient (BNV) | payer OTHER, SELFPAY | PROVIDERS: PCP Internal Medicine; Visit Provider Radiology Diagnostic Radiology | DX: M25.561 Pain in right knee (principal) | CPT/HCPCS: 73564 ==

== ENCOUNTER 2024-07-25 08:28 | Outpatient (REF) | payer OTHER, SELFPAY ==
--- NOTE | ~2024-07-25 | XR_ITS ---
EXAMINATION: XR KNEE AP STANDING CLINICAL INFORMATION: M25.561 - Pain in right knee COMPARISON: None available. TECHNIQUE: AP bilateral standing lateral and sunrise view of the knees was obtained. FINDINGS: Right knee: There is a small bony exostosis with a broadbase directed away from the joint line involving the posterior medial metaphysis of the tibia. Joint spaces are preserved. There are no osteophytes. There is no joint effusion. Left knee: There is mild narrowing of the lateral patellofemoral joint. Other joint spaces are preserved. There are no osteophytes. There is a small bony exostosis visible on the sunrise view along the posterior aspect of the medial tibial metaphysis. XR/XR knee standing BI IMPRESSION: There are small sessile osteochondroma involving the medial metaphyses of the tibias. Mild narrowing of the left lateral patellofemoral joint space. Otherwise unremarkable bilateral knees. Electronically signed by: Angelo Cornejo MD 07/25/2024 02:24 PM EDT
== END 2024-07-25 08:29 | disposition home or self-care (01) ==
LOC: HO.HOSX 08:28
PROVIDERS: Visit Provider Physician Assistant
DX: M25.561 Pain in right knee (principal)
CPT/HCPCS: 73565

== ENCOUNTER → 2024-07-25 13:23 | Outpatient (BNV) | payer OTHER, SELFPAY | PROVIDERS: Visit Provider Radiology Diagnostic Radiology | DX: M22.2X2 Patellofemoral disorders, left knee (principal) | CPT/HCPCS: 73565 ==

== ENCOUNTER 2024-07-25 13:49 | Outpatient (AMB) | payer OTHER, SELFPAY ==
--- NOTE | 2024-07-25 13:56 | MHC.OFFVIS ---
Intake Visit Reasons: New Pt - right knee pain Intake Note: Jeanna is a 59 year old female who presents today as a new patient for a evaluation of her right knee pain. no hx of injury or trauma. Patient reports she was having a burning snesation for about 2 weeks. She states that she isnt having pain at the momentment and would like to know what her x rays show. IMPRESSION: Small enchondroma versus bone infarct in the medial tibial plateau. Small exostosis off the medial tibial metaphysis Allergies latex Allergy (Unknown, Verified 03/29/24 10:44) Itching HPI HPI New Pt - right knee pain: Details: Ms. Faye is a 59 yo female who presents to the office today for evaluation of right knee pain that lasted for about two weeks and reports it was a burning sensation along the medial aspect of the knee. The patient reports that the burning sensation has resolved and she is now back at her baseline. She endorses occasional lower back pain. No additional complaints. [facility] Medical History (Updated 04/20/24 @ 16:00 by Jolanta Mcintyre PA-C) Knee pain Exostosis Enchondroma of bone Overweight (BMI 25.0-29.9) History of mammogram (~08/25/22) H/O impacted cerumen History of varicella Uterine fibroid Calcifying tendinitis of left shoulder Varicella Right knee pain Blurry vision, bilateral Hemorrhoids Mild hypercholesterolemia HTN (hypertension) Surgical History Hx of hysterectomy Hx of colonoscopy (~12/22/21) Hx of esophagogastroduodenoscopy Social History (Updated 07/25/24 @ 14:09 by Yony Miranda) Alcohol intake: current Alcohol intake frequency: holidays/special occasions only Patient Tobacco Use Status: Never used Tobacco Current occupational status: employed 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 No eccymosis, erythema or joint effusion. Able to perform full ROM. Able to perform SLR. NVI. Assessment & Plan Assessment & Plan (1) Right knee pain: Code(s): M25.561 - Pain in right knee Category: Medical Plan Ms. Faye is a 59 yo female who presents to the office today for evaluation of right knee pain that lasted for about two weeks and reports it was a burning sensation along the medial aspect of the knee. The patient reports that the burning sensation has resolved and she is now back at her baseline. She endorses occasional lower back pain. No additional complaints. While in the office today the patient reports that her symptoms have completely resolved. There is no intervention needed at this time. X-rays were obtained while in the office today and reviewed by me, Kalpana Gardner PA-C, and reveal no acute fracture or dislocation. Orders: Orders XR knee standing BI 07/25/24 M25.561 - Pain in right knee Coding Level of Care Code New Pt Level 3 (40339) Diagnoses Right knee pain M25.561
--- OUTSIDE RECORDS SUMMARY | 2024-07-25 15:50 | XMS_ITS | Data Portability ---
Author Organization [place] [facility] [address] Address [address] [place] [address] Assessment No assessment recorded. Plan of Treatment [...] % ear drops, susp 023 04/06/19 23 [id number], [address] [place], [address], 3 19:24:24 Patient TargetsNo targets recorded. Patient Instructions Encounter Date Encounter Id Patient Instructions Last Modified By Organization Details Last Modified Time 04/06/2022 [id number] Water in the ear , from swimming [...] deeper into the ear canal. Remain still, fevo-fzk-lyis-down for about 15 minutes. 3. Keep the [...] about six inches from the ear. 4. Obpb-cty-gsecwpj pain medications can relieve discomfort associated with external otitis. Acetaminophen (Tylenol), ibuprofen, or naproxen can be taken, depending on individual preference. 5. Return to the [facility] in about one week. The provider can [...] Address Organization Details Recorded Time Hypertensive disorder 16644077 Active 2022 Kalpana reed, [place] - [facility] 3 18:50:57 Hyperlipidemia 85956540 Active 2022 [facility] - [facility] [...] saturation in Arterial blood by Pulse oximetry Heart rate Respiratory rate Body temperature Systolic blood pressure Diastolic blood pressure Provider Name and Address Organization Details Last Updated DateTime 165.1 cm 25 kg/m2 31560.8 6 g 99 % 99 % 74 /min 20 /min 97.9 [degF] 137 mm[Hg] 84 mm[Hg] Kalpana Valadez Kollabora 18:56:04 Social History Question Answer Notes LastModified by [facility] Details LastModified Time Tobacco Smoking Status Never Smoker Kalpana reed [facility] 04/06/2022 18:51:13 Have You Had Direct Contact, Or Contact During Intimacy, With Monkeypox Rash, Scabs, Or Body Fluids From A Person With Monkeypox? No Information not available 04/06/2022 Have You Recently Traveled Abroad? No Information not available 04/06/2022 Sex: Unknown Functional Status Question Answer Note LastModified by [facility] Details LastModified Time Do you use any illicit or recreational drugs? No Information not available 04/06/2022 Do you or have you ever used any other forms of tobacco or nicotine? No Information not available 04/06/2022 What is your level of alcohol consumption? Occasional Information not available 04/06/2022 Mental Status None recorded. Family History Relationship [...] split virus, quadrivalent, preservative 0 completed Kalpana [place] null, [place] - [facility] 04/06/2022 18:50:33 Influenza, split virus, quadrivalent, preservative 8 completed Kalpana Rory null, PA - [facility] 04/06/2022 18:50:33 zoster recombinant 2 completed Kalpana [place] null, [place] - [facility] 04/06/2022 18:50:33 zoster recombinant 2 completed Kalpana [place] null, [place] - [facility] 04/06/2022 18:50:33 COVID-19, mRNA, LNP-S, PF, 30 mcg/0.3 mL dose 1 completed Kalpana Rory null, PA - [facility] 04/06/2022 18:50:33 COVID-19, mRNA, LNP-S, PF, 30 mcg/0.3 mL dose 1 completed Kalpana Rory null, PA - [facility] 04/06/2022 18:50:33 COVID-19, mRNA, LNP-S, PF, 30 mcg/0.3 mL dose 1 completed Kalpana [place] null, [place] - [facility] 04/06/2022 18:50:33 Past Encounters Encounter ID Performer Location Encounter Start Date Encounter Closed Date Diagnosis/Indication Diagnosis SNOMED-CT Code Diagnosis ICD10 Code Diagnosis Note [id number] [address] [facility] [address] [place] [address] 02/25/2021 08:10:25 02/25/2021 10:05:26 [id number] [address] [place] [address] 12/10/2019 18:02:11 12/10/2019 19:01:53 [id number] [address] [place] [address] 06/01/2020 16:47:49 06/01/2020 17:43:59 [id number] [address] [place] [address] 11/27/2019 17:47:43 11/27/2019 18:57:13 [id number] [address] [place] [address] 07/04/2016 18:40:43 07/04/2016 19:14:58 [id number] Mahesh Fleming, [employer] [address] [place] [address] 04/06/2022 17:32:19 04/06/2022 19:25:43 Otitis externa of bilateral ears [id number] 309719 H60.93 Health Concerns Section Related Observation LastModified by Organization Detai ls LastModified Time None Recorded Concern Status LastModified by Organization Details LastModified Time None Recorded Advance Directives Directive None Recorded Payers Insurance Date Sequence Insurance Name Policy Number Policy Hernandez Covered Member ID Hernandez Member ID Guarantor Name 04/27/2022 1 [facility] (PPO) [id number] Jeanna Clifford Faye [id number] Jeanna Clifford Faye Notes Date Note Type Note Provider [...] Fleming NP [address] [place], [address], [place] - [facility] 04/06/2022 19:24:58 OBGyn Episode No OBEpisode recorded.
== END 2024-07-25 14:21 | disposition home or self-care (01) ==
LOC: HO.HOS 13:50
PROVIDERS: PCP Internal Medicine; Visit Provider Physician Assistant
DX: M25.561 Pain in right knee (principal)
CPT/HCPCS: 99203

== ENCOUNTER 2024-09-21 14:06 | Outpatient (AMB) | payer OTHER, SELFPAY ==
--- NOTE | 2024-09-21 14:16 | MHC.OFFVIS ---
Vital Signs 09/21/24 14:17 Height 5 ft 3.75 in Intake Visit Reasons: 1 Year Follow up Allergies latex Allergy (Unknown, Verified 09/21/24 14:19) Itching Medication List - Last Reconciled 09/21/24 by Glory Carroll CNP atorvastatin 10 mg PO DAILY coenzyme Q10 100 mg PO DAILY [Franconia 3 1,000 mg PO DAILY] propranolol ER 1 cap PO DAILY HPI Comments Details: 59-year-old woman with migraine and associated symptoms. She was doing okay. Migraines were controlled with propranolol. She had occasional headache that was relieved by Advil. Sleep was so-so. [facility] Medical History (Updated 09/21/24 @ 14:19 by Glory Carroll CNP) Migraine equivalent syndrome Migraine without aura Knee pain Exostosis Enchondroma of bone Overweight (BMI 25.0-29.9) History of mammogram (~08/25/22) H/O impacted cerumen History of varicella Uterine fibroid Calcifying tendinitis of left shoulder Varicella Right knee pain Blurry vision, bilateral Hemorrhoids Mild hypercholesterolemia HTN (hypertension) Surgical History Hx of hysterectomy Hx of colonoscopy (~22) Hx of esophagogastroduodenoscopy Social History (Updated 07/25/24 @ 14:09 by Yony Miranda) Alcohol intake: current Alcohol intake frequency: holidays/special occasions only Patient Tobacco Use Status: Never used Tobacco Current occupational status: employed 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 Review of Systems Const Denies chills, Denies daytime sleepiness, Denies difficulty sleeping, Denies fatigue, Denies fever(s), Denies frequent falls, Reports headache(s), Denies increased appetite, Denies poor appetite, Denies snoring, Denies weakness, Denies weight gain and Denies weight loss Eyes Denies loss of vision ENT Denies vertigo, Denies dizziness and Reports headache(s) Card Denies chest pain at rest, Denies chest pain with activity, Denies syncope, Denies leg edema and Denies palpitations Resp Denies snoring GI Denies constipation, Denies heartburn, Denies diarrhea and Denies nausea Denies urinary frequency, Denies urinary incontinence and Denies urinary urgency Musc Denies abnormal gait, Denies numbness and Denies tingling Skin/Breast Denies dry skin and Denies rash Neuro Denies abnormal gait, Denies vertigo, Denies dizziness, Denies syncope, Denies frequent falls, Reports headache(s), Denies lack of coordination, Denies loss of vision, Denies memory loss, Denies numbness, Denies restless legs, Denies seizure-like activity, Denies tingling, Denies paresthesias, Denies tremor(s) and Denies weakness Psych Denies anxiety, Denies depression, Denies auditory hallucinations, Denies memory loss, Denies visual hallucinations and Denies suicidal ideation Endo Denies fatigue and Denies palpitations Physical Exam Const Other: General Appearance:? normal, in no acute distress. Skin:? no rashes, no significant birthmarks. Heart:? S1, S2 normal, no murmurs. Lungs:? clear anteriorly and posteriorly. Extremities:? no edema. Psych:? alert, oriented, cognitive function intact, cooperative with exam. Neuro Other: Mental Status:?Normal attention, orientation, memory and affect.? Cranial Nerves:?Pupils are equal, round and reactive to light. External occular muscles are intact. Visual sewell are full. Face is symmetrical. Facial sensations are normal. Tongue is midline. Palate elevates symmetrically. Shoulder shrugging is normal. Hearing to bedside conversation is normal. Her right palpebral fissure is slightly smaller than left.? Sensory Exam:?....? Coordination:?No ataxia,?no titubation.? Gait Exam: Within normal limits. Cerebellar Signs:?Dhgdjs-cv-gpox and gsyo-tq-acbl is normal.? Extrapyramidal System:?No tremor, rigidity with normal facial expressions.? Pronator Drift:?Not present.? Involuntary Movements:?No tremors seen.? Speech:?Normal.? Assessment & Plan Assessment & Plan (1) Migraine without aura: Code(s): G43.009 - Migraine without aura, not intractable, without status migrainosus Category: Medical Qualifiers: Status migrainosus presence: without status migrainosus Intractability: not intractable Qualified Code(s): G43.009 - Migraine without aura, not intractable, without status migrainosus Plan: Continue propranolol ER 60mg 1 capsule daily. (2) Migraine equivalent syndrome: Code(s): G43.109 - Migraine with aura, not intractable, without status migrainosus Category: Medical Plan . Medications: Changed From propranolol ER 1 cap PO DAILY To propranolol ER 60 mg PO DAILY 90 caps 3RF 90 days Coding Level of Care Code Est Pt Level 3 (31197) Diagnoses Migraine without aura and without status migrainosus, not intractable G43.009 Status migrainosus presence: without status migrainosus Intractability: not intractable Migraine equivalent syndrome G43.109
== END 2024-09-21 14:25 | disposition home or self-care (01) ==
LOC: HO.HSM 14:07
PROVIDERS: PCP Internal Medicine; Referring Provider Internal Medicine; Visit Provider Registered Nurse
DX: G43.009 Migraine without aura, not intractable, without status migrainosus (principal); G43.109 Migraine with aura, not intractable, without status migrainosus
CPT/HCPCS: 99213